=== PATIENT | male | born 1990 | race Caucasian/White ===

== ENCOUNTER 2024-03-24 14:16 | Emergency (ER) | payer SELFPAY ==
[2024-03-24] MEDS ORDERED: Ondansetron PF 4 MG/2 ML Vial ONE (14:59)
[2024-03-24] MEDS ORDERED: Sodium Chloride 0.9% 1,000 ML ONE (15:02)
[2024-03-24 15:36] LABS: #Basophils 0.1 thou/uL (0.0-0.2); #Lymphocytes 2.1 thou/uL (1.20-3.40); #Monocytes 1.6 thou/uL (0.11-0.59); #Neutrophils 13.3 thou/uL (1.40-6.50); %Basophils 0.7 % (0.0-1.0); %Lymphocytes 12.1 % (21.0-51.0); %Monocytes 9.1 % (0.0-10.0); %Neutrophils 78.1 % (42.0-75.0); Hematocrit 54.4 % (42.0-52.0); Hemoglobin 17.4 g/dL (14.0-18.0); Mean Corpuscular Hemoglobin 27.5 pg (27.0-31.0); Mean Platelet Volume 7.1 fL (7.4-10.4); Platelet Count 377 10x3/uL (130-400); RBC Distribution Width 11.3 % (11.5-14.5); Red Blood Cell (RBC) Count 6.33 mill/uL (4.70-6.10)
[2024-03-24 15:54] LABS: ALT (SGPT) 46 U/L (8-55); AST (SGOT) 43 U/L (5-34); Albumin 5.3 g/dL (3.5-5.0); Alkaline Phosphatase 86 U/L (40-110); Anion Gap 25 mmol/L (10-20); BUN (Urea Nitrogen) 74 mg/dL (8.9-20.6); Bilirubin, Total 1.6 mg/dL (0.2-1.2); Calc. Creatinine Clearance 0 mL/min (70-130); Calcium 10.3 mg/dL (7.8-10.44); Carbon Dioxide 35 mmol/L (22-29); Chloride 83 mmol/L (98-107); Estimated GFR 30; Globulin 3.7 g/dL (2.4-3.5); Glucose 133 mg/dL (70-105); Potassium 2.8 mmol/L (3.5-5.1); Sodium 140 mmol/L (136-145)
[2024-03-25 10:57] LABS: Lipase 48 U/L (8-78)
== END 2024-03-24 18:04 | disposition home or self-care (01) ==
LOC: MADERS 14:16
DX: N17.9 Acute kidney failure, unspecified (principal); E86.0 Dehydration; E87.6 Hypokalemia; F11.23 Opioid dependence with withdrawal
CPT/HCPCS: 36415; 80053; 83690; 85025; 96361; 96374; J2405; J7030